=== PATIENT | female | born 1945 | race Caucasian/White ===

== ENCOUNTER → 2017-05-28 | Outpatient (CLI) | payer OTHER ==
--- NOTE | 2017-05-28 13:11 | KCIC ---
INDICATION: Difficulty breathing for one month. Bronchitis. TECHNIQUE: Two-view chest radiograph was obtained. Comparison is from August 27, 2014. FINDINGS: The lungs are clear. There is no perihilar opacity or peribronchial cuffing. There is no pleural effusion. The heart is not enlarged and there is no heart failure. There is minimal atheromatous disease in the thoracic aorta. There is also significant atheromatous plaquing in the abdominal aorta. There are mild degenerative changes in the thoracic spine. There is an old left rib fracture. IMPRESSION: No acute thoracic findings. Electronically signed by: Kushal Huang MD (05/28/2017 1:07 PM) [facility]
== END | disposition home or self-care (01) ==
LOC: KCIC 07:58
PROVIDERS: ATTEND Family Medicine
DX: S22.32XD Fracture of one rib, left side, subsequent encounter for fracture with routine healing (principal); J40 Bronchitis, not specified as acute or chronic; I70.0 Atherosclerosis of aorta; X58.XXXD Exposure to other specified factors, subsequent encounter
CPT/HCPCS: 71020

== ENCOUNTER → 2017-07-05 | Outpatient (CLI) | payer OTHER ==
--- NOTE | 2017-07-05 12:57 | KCIC ---
EXAM: Chest CT without intravenous contrast. HISTORY: Shortness of breath. Bronchitis. TECHNIQUE: Computed tomographic images of the chest were obtained without contrast. Multiplanar reformatting was performed. *One or more of the following individualized dose reduction techniques were utilized for this examination: 1. Automated exposure control. 2. Adjustment of the mA and/or kV according to patient size. 3. Use of iterative reconstruction technique. COMPARISON: None. FINDINGS: The heart is normal in size. There is aortic and coronary artery calcified atherosclerotic plaque. There is calcification of the mitral valve annulus. There are prominent mediastinal and hilar lymph nodes, none of which are pathologically enlarged. There is no pneumothorax or pleural effusion. There is no infiltrate. There is suspected lingular atelectasis or scarring. There are 2 mm nodular opacities within the left upper lobe. There is a 2 mm pleural-based nodule within the lateral right upper lobe. There is a 2 mm nodule within the right upper lobe along the pleural fissure, possibly a fissural lymph node. There is a 2 mm groundglass nodular opacity within the medial right lower lobe. There is a small hiatal hernia. The upper abdomen is otherwise unremarkable. There are healed rib fractures. There is no suspicious osseous lesion. IMPRESSION: 1. No acute thoracic finding. 2. Tiny nodular opacities within both lungs, the largest of which measures 2 mm. These are benign in appearance. Follow-up can be performed in one year if there is clinical concern based on Fleischner Society criteria. 3. Small hiatal hernia. Fleischner Society recommendations (Radiology 2005; 237; 395-400): In a low risk patient: <4mm - No follow up required. >4-6mm- 12 month follow up, if unchanged, no further follow up. >6-8mm- 6-12 month follow up, then at 18-24 months if no change. >8mm- 3, 9, 24 month follow up or consideration of PET/CT. In a high risk patient: <4mm - 12 month follow up, if unchanged then no further follow up. >4-6mm- 6-12 month follow up, then at 18-24 months if no change. >6-8mm- 3-6 month follow up, then at 9-12 months and 24 months if no change >8mm- Same as for low risk patient. Electronically signed by: Vera Payne MD (07/05/2017 12:54 PM) [facility]
== END | disposition home or self-care (01) ==
LOC: KCIC CT 12:03
PROVIDERS: ATTEND Family Medicine
DX: J40 Bronchitis, not specified as acute or chronic (principal); K44.9 Diaphragmatic hernia without obstruction or gangrene
CPT/HCPCS: 71250

== ENCOUNTER → 2019-06-09 | Outpatient (CLI) | payer OTHER ==
--- NOTE | 2019-06-09 16:10 | KCIC ---
ESOPHAGRAM/BARIUM SWALLOW History: Difficulty swallowing Comparison: None. Findings: There was transient reflux of contrast into the distal esophagus during exam. There was no significant esophageal stricture or obstruction. There is small sliding hiatal hernia. 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 Fluoroscopy time: 2 minutes 55 seconds, 26 images Impression: 1. There is small sliding hiatal hernia, no significant stricture or obstruction of the esophagus. There was transient reflux from stomach into the distal esophagus during exam. Electronically signed by: Allan Billy MD (06/09/2019 4:07 PM) [facility]
== END | disposition home or self-care (01) ==
LOC: KCIC 08:10
PROVIDERS: ATTEND Physician Assistant
DX: K44.9 Diaphragmatic hernia without obstruction or gangrene (principal); K57.10 Diverticulosis of small intestine without perforation or abscess without bleeding
CPT/HCPCS: 74220

== ENCOUNTER → 2019-06-13 | Outpatient (CLI) | payer OTHER ==
[~2019-06-13] MED LIST: REGADENOSON 0.4 MG/5 ML DISP.SYRIN. IV ONE
--- NOTE | 2019-06-13 09:05 | CARD ---
MR#: [id number] Date of Study: 06/13/2019 Ordering Physician: GEETHA SUAREZ, Referring Physician: GEETHA SUAREZ, Tech: Nani De La Torre TOM APPROVED REPORT EXAM: Two-dimensional and M-mode echocardiogram with Doppler and color Doppler. Other Information Quality : Fair INDICATION Murmur 2D DIMENSIONS RVDd2.4 (2.9-3.5cm)Left Atrium(2D)3.4 (1.6-4.0cm) IVSd0.8 (0.7-1.1cm)Aortic Root(2D)2.2 (2.0-3.7cm) LVDd5.1 (3.9-5.9cm)LVOT Diameter2.0 (1.8-2.4cm) PWd0.8 (0.7-1.1cm)LVDs2.8 (2.5-4.0cm) FS (%) 30.0 %SV92.5 ml LVEF(%)60.0 (>50%) Aortic Valve AoV Peak Jonah.150.0cm/sAoV VTI27.7cm AO Peak GR.9.0mmHgLVOT Peak Jonah.152.1cm/s AO Mean GR.4mmHgAVA (VMAX)3.16cm2 TWIN (VTI)3.30cm2 Mitral Valve MV E Kdmnpyjf47.0cm/sMV DECEL WVAO596sh MV A Wafqqeek860.7cm/sE/A Ratio0.6 Tricuspid Valve TR P. Xgqatgom746si/sRAP TTJPPMBF1zqPm TR Peak Gr.27loIoRDJK66opDx Pulmonary Vein S1 Sqcajnny47.4cm/sD2 Dsmmfvtg57.5cm/s LEFT VENTRICLE The left ventricle is normal size. There is normal left ventricular wall thickness. The left ventricu lar systolic function is normal and the ejection fraction is within normal range. The Ejection Fracti on is 55-60%. There is normal LV segmental wall motion. Transmitral Doppler flow pattern is Grade I-a bnormal relaxation pattern. RIGHT VENTRICLE The right ventricle is normal size. The right ventricular systolic function is normal. ATRIA The left atrium size is normal. The right atrium size is normal. The interatrial septum is intact wit h no evidence for an atrial septal defect or patent foramen ovale as noted on 2-D or Doppler imaging. AORTIC VALVE The aortic valve is calcified but opens well but appears to be functioning normally by Doppler interr ogation. Doppler and Color Flow revealed trace aortic regurgitation. There is no significant aortic v alvular stenosis. MITRAL VALVE The mitral valve is calcified but opens well. Posterior mitral annular calcification is moderate. The re is no evidence of mitral valve prolapse. There is no mitral valve stenosis. Doppler and Color-flow revealed trace mitral regurgitation. TRICUSPID VALVE The tricuspid valve is normal in structure and function. Doppler and Color Flow revealed trace tricus pid regurgitation. The PA pressure was estimated at 29 mmHg. There is no tricuspid valve stenosis. PULMONIC VALVE The pulmonic valve is not well visualized. Doppler and Color Flow revealed no pulmonic valvular regur gitation. There is no pulmonic valvular stenosis. GREAT VESSELS The aortic root is normal in size. The ascending aorta is not well seen. The IVC is normal in size an d collapses >50% with inspiration. PERICARDIAL EFFUSION There is no evidence of significant pericardial effusion. Critical Notification Critical Value: No <Conclusion> The left ventricular systolic function is normal and the ejection fraction is within normal range. Th e Ejection Fraction is 55-60%. There is normal LV segmental wall motion. Signed by : Brent Benavides, Electronically Approved : 06/13/2019 09:04:28
--- NOTE | 2019-06-13 11:48 | RAD ---
MR#: [id number] Date of Study: 06/13/2019 Ordering Physician: GEETHA SUAREZ, Referring Physician: ERICH SAAB Tech: RT Sharon (R) (N) APPROVED REPORT Test Type: Pharmacological Stress Nurse/Tech: Jaleesa Azevedo R.N. Test Indications: cp,SOB Cardiac History: obese,htn Medications: See Electronic Medical Record Medical History: See Electronic Medical Record Resting ECG: SR Resting Heart Rate: 72 bpm Resting Blood Pressure: 169/73mmHg Pretest Chest Pain: No chest pain Nurse/Tech Notes S1S2, lungs CTA Consent: The procedure was explained to the patient in lay terms. Informed consent was witnessed. Anders eout was entered into [employer]This. History and Stress Test performed by JORDAN Blackman, CONRADO (R) (N) Pharm. Details Pharmacologic stress testing was performed using 0.4mg per 5ml of regadenoson given intravenously ove r 7-10 seconds. Stress Symptoms SOB, lightheaded and dizzy POST EXERCISE Reason for Termination: Infusion complete Max HR: 114 bpm Max Blood Pressure: 169/60mmHg Blood Pressure response to exercise: Normal blood pressure response during stress. Heart Rate response to exercise: wnl Chest Pain: No. Arrhythmia: No. ST Change: No. INTERPRETATION Stress EKG Conclusion: No evidence of stress induced EKG changes Imaging Protocol IMAGE PROTOCOL: Rest Tc-99m/stress Tc-99m 1 day Rest: Stress: Viability: Radiopharm.Tc99m HceybeznkUo50r Sestamibi Dose11.0mCi 33.0mCi Duration 11min. 11min. Img Date 06/13/2019 06/13/2019 Inj-Img Kkhq52txa. 60min. Rest Admin Site:IV - Right AntecubitalAdministrator:RT Louis (R)(N) Stress Admin Site: IV - Left AntecubitalAdministrator: JORDAN Blackman, CONRADO (R)(N) STRESS DATA End Diast. Vol.30.0mlAv. Heart Rate97.0bpm LVEDV index BSA17.0mlCardiac Output0.0L/min End Syst. Vol.1.0mlCO Index BSA0.0L/min LVESV index BSA1.0mlMyocardial Mass73.0g Eject. Yjqewyth03.0% Stress Rates Pk. Fill Rate5.97EDV/secLVtime Pk. Fill 152.37msec Pk. Empty Rate8.98ESV/secLVtime Pk. Eject92.01msec 1/3 Pk. Fill1.26EDV/sec Stress Scores Regional WT1.00Summed WT2.00 Regional WM0.00Summed WM0.00 The rest and stress images show normal perfusion, normal contraction and thickening. LV Perf. Quant 17 Seg. SSS1.00 17 Seg. SRS0.00 17 Seg. SDS1.00 Stress Defect Extent (% LAD)0.00Rest Defect Extent (% LAD)0.00Rev. Defect Extent (% LAD)0.00 Stress Defect Extent (% LCX) 0.00Rest Defect Extent (% LCX)0.00Rev. Defect Extent (% LCX)0.00 Stress Defect Extent (% RCA)0.00Rest Defect Extent (% RCA)0.00Rev. Defect Extent (% RCA)0.00 Stress Defect Extent (% ONEAL)0.00Rest Defect Extent (% ONEAL)0.00Rev. Defect Extent (% ONEAL)0.00 Other Information Quality:Good Risk Assessment: Low Risk Conclusion 1. No evidence of EKG changes with stress testing. 2. Normal perfusion at stress/rest. 3. Low risk study. 4. EF > 60%. Signed by : Brent Benavides, Electronically Approved : 06/13/2019 11:47:29
== END | disposition home or self-care (01) ==
LOC: NM 07:47
PROVIDERS: ATTEND Internal Medicine Cardiovascular Disease
DX: I08.0 Rheumatic disorders of both mitral and aortic valves (principal); E66.9 Obesity, unspecified; I10 Essential (primary) hypertension; Z88.0 Allergy status to penicillin; Z88.8 Allergy status to other drugs, medicaments and biological substances
CPT/HCPCS: 78452; 93017; 93306; A9500; J2785

== ENCOUNTER → 2019-07-26 | Outpatient (CLI) | payer OTHER ==
--- NOTE | 2019-07-26 15:04 | KCIC ---
CHEST PA LATERAL Clinical indications: Dyspnea and shortness of air and chest pain. Past smoker. COMPARISON: May 28, 2017. Findings: No acute lung infiltrate or pleural effusion or pulmonary edema or lung mass or pneumothorax is seen. The heart size, pulmonary vasculature, mediastinum and both rick are unremarkable. The osseous structures appear intact. Impression: No acute radiographic abnormality is seen. Electronically signed by: Onesimo Prieto MD (07/26/2019 3:01 PM) [facility]
== END | disposition home or self-care (01) ==
LOC: KCIC 13:08
PROVIDERS: ATTEND Internal Medicine Critical Care Medicine
DX: R06.00 Dyspnea, unspecified (principal); Z87.891 Personal history of nicotine dependence
CPT/HCPCS: 71046

== ENCOUNTER → 2019-10-18 | Outpatient (CLI) | payer OTHER | END | disposition home or self-care (01) | LOC: KCIC CT 12:45 | PROVIDERS: ATTEND Internal Medicine Critical Care Medicine | DX: R07.9 Chest pain, unspecified (principal) | CPT/HCPCS: 82565 ==

== ENCOUNTER → 2019-12-01 | Outpatient (CLI) | payer OTHER ==
--- NOTE | 2019-12-01 08:29 | RAD ---
EXAM: CHEST PA LATERAL INDICATION: Interstitial lung disease.. TECHNIQUE: PA and lateral views COMPARISON: 07/26/2019 chest x-ray FINDINGS: The heart size is normal. The great vessels appear unremarkable. There is no hilar or mediastinal mass. The lungs are clear. There is no pleural effusion or pneumothorax. There are no significant osseous abnormalities. IMPRESSION: No active cardiopulmonary disease. Electronically signed by: Blue Fernandez MD (12/01/2019 8:26 AM) [id number]
--- NOTE | 2019-12-01 08:55 | RAD ---
EXAM: CT Chest without IV contrast INDICATION: Lung disease. TECHNIQUE: Multi-detector row CT images were acquired from the thoracic inlet through the upper abdomen without the use of IV contrast. Sagittal and coronal images were acquired from the transaxial data. All CT scans performed at this facility utilize dose optimization techniques as appropriate to the exam, including the following: Automated exposure control and adjustment of the mA and/or KV according to patient size (this includes techniques or standardized protocols for targeted exams where dose is indication/reason for exam). COMPARISON: Chest x-ray of earlier the same day, chest CT without IV contrast 07/05/2017. FINDINGS: The absence of IV contrast limits evaluation of soft tissue pathology. CARDIOVASCULAR: Scattered arterial calcifications including dense multivessel coronary calcifications, and mitral annulus normal caliber thoracic aorta and normal heart size without pericardial effusion. Calcifications. MEDIASTINUM & BG: No adenopathy or masses. The thyroid gland is not visualized and may be atrophic or surgically absent.. LUNGS: Numerous micronodules are scattered throughout both lungs in random distribution. No dominant mass, architectural distortion, honeycombing, interlobular septal thickening is evident. [employer] nodules include a 2 mm posterior right upper lobe nodule (image 25 of 57 on axial series 2, image 32 of 60 on coronal series 5) and a 2 mm nodule in the posterior basal left lower lobe nodule (axial image 37 of 57 of series 2 and coronal image 44 of 60 of series 5 and sagittal image 24 of 75 on series 6). There is no mosaic attenuation to the lungs or groundglass opacity. PLEURAL SPACE: No pleural effusions or pneumothorax. OSSEOUS & SOFT TISSUE: Unremarkable ABDOMEN: The visualized portions of the upper abdomen are unremarkable. IMPRESSION: 1. Multiple pulmonary micronodules showing no interval progression. These likely reflect the sequelae of previous granulomatous disease. They require no additional follow-up per Fleischner Society criteria. If patient is considered at high risk for lung cancer, patient may be considered for CT lung cancer screening. 2. There is evidence of atherosclerotic cardiovascular disease. Cardiovascular disease risk factor modification could be of benefit. 3. The thyroid gland is not well seen and may be biochemically or surgically absent. Recommend clinical correlation. Electronically signed by: Blue Fernandez MD (12/01/2019 8:51 AM) [id number]
--- NOTE | 2019-12-01 09:55 | RAD ---
VQ Scan: Clinical History: shortness of breath. Technique: . 5.5 mCi of Tc 99m MAA was administered intravenously and spot views were obtained on the gamma camera for a Nuclear Medicine perfusion examination. Static images were reviewed. Findings: Perfusion images are homogeneous without perfusion defects. No evidence of perfusion defects identified in the bilateral lungs. Examination is limited as ventilation images could not be performed. Impression: Low probability for pulmonary embolism. Electronically signed by: Kevin Winston MD (12/01/2019 9:52 AM) [id number]
== END | disposition home or self-care (01) ==
LOC: NM 08:37
PROVIDERS: ATTEND Internal Medicine Critical Care Medicine
DX: J84.9 Interstitial pulmonary disease, unspecified (principal); J90 Pleural effusion, not elsewhere classified; R06.02 Shortness of breath
CPT/HCPCS: 71046; 71250; 78580; 96374; A9540

== ENCOUNTER → 2020-06-14 | Outpatient (CLI) | payer OTHER ==
--- NOTE | 2020-06-14 15:03 | CARD ---
MR#: [id number] Date of Study: 06/14/2020 Ordering Physician: GEETHA GILLESPIE, Referring Physician: GEETHA GILLESPIE, Tech: Nani De La Torre [facility] APPROVED REPORT EXAM: Two-dimensional and M-mode echocardiogram with Doppler and color Doppler. Other Information Quality : Fair INDICATION Dyspnea on Exertion 2D DIMENSIONS RVDd2.7 (2.9-3.5cm)Left Atrium(2D)3.7 (1.6-4.0cm) IVSd1.0 (0.7-1.1cm)Aortic Root(2D)2.6 (2.0-3.7cm) LVDd4.6 (3.9-5.9cm)LVOT Diameter2.0 (1.8-2.4cm) PWd1.0 (0.7-1.1cm)LVDs2.6 (2.5-4.0cm) FS (%) 30.0 %SV71.2 ml LVEF(%)60.0 (>50%) Aortic Valve AoV Peak Jonah.170.9cm/sAoV VTI32.7cm AO Peak GR.11.7mmHgLVOT Peak Jonah.162.1cm/s AO Mean GR.6mmHgAVA (VMAX)2.84cm2 TWIN (VTI)2.90cm2 Mitral Valve MV E Qmviwvjs87.9cm/sMV DECEL PPCC911lv MV A Ahnflbai385.6cm/sE/A Ratio0.7 Tricuspid Valve TR P. Agguhnru189pq/sRAP CKNNOTKZ4ofJv TR Peak Gr.06unKeVPBC36xpEq Pulmonary Vein S1 Jpvqoyfy43.8cm/sD2 Irvirqwy87.8cm/s LEFT VENTRICLE The left ventricle is normal size. There is normal left ventricular wall thickness. The left ventricu lar systolic function is normal and the ejection fraction is within normal range. The Ejection Fracti on is 60-65%. There is normal LV segmental wall motion. Transmitral Doppler flow pattern is Grade I-a bnormal relaxation pattern. RIGHT VENTRICLE The right ventricle is normal size. The right ventricular systolic function is normal. ATRIA The left atrium size is normal. The right atrium size is normal. The interatrial septum is intact wit h no evidence for an atrial septal defect or patent foramen ovale as noted on 2-D or Doppler imaging. AORTIC VALVE The aortic valve is calcified but opens well. Doppler and Color Flow revealed no significant aortic r egurgitation. There is no significant aortic valvular stenosis. MITRAL VALVE The mitral valve is calcified but opens well. There is no evidence of mitral valve prolapse. There is no mitral valve stenosis. Doppler and Color-flow revealed mild mitral regurgitation. TRICUSPID VALVE The tricuspid valve is normal in structure and function. Doppler and Color Flow revealed trace tricus pid regurgitation. The PA pressure was estimated at 25 mmHg. There is no tricuspid valve stenosis. PULMONIC VALVE The pulmonic valve is not well visualized. Doppler and Color Flow revealed no pulmonic valvular regur gitation. There is no pulmonic valvular stenosis. GREAT VESSELS The aortic root is normal in size. The ascending aorta is normal in size. The IVC is normal in size a nd collapses >50% with inspiration. PERICARDIAL EFFUSION There is no evidence of significant pericardial effusion. Critical Notification Critical Value: No <Conclusion> The left ventricle is normal size. The left ventricular systolic function is normal and the ejection fraction is within normal range. The Ejection Fraction is 60-65%. Doppler and Color Flow revealed no significant aortic regurgitation. There is no significant aortic valvular stenosis. Doppler and Color-flow revealed mild mitral regurgitation. Doppler and Color Flow revealed trace tricuspid regurgitation. The PA pressure was estimated at 25 mmHg. Signed by : Geetha Gillespie MD Electronically Approved : 06/14/2020 15:02:41
== END ==
LOC: ECHO 07:45
PROVIDERS: ATTEND Internal Medicine Cardiovascular Disease
DX: I08.0 Rheumatic disorders of both mitral and aortic valves (principal)
CPT/HCPCS: 93306